=== PATIENT | male | born 1955 | race Caucasian/White ===

== ENCOUNTER 2021-03-13 19:04 | Emergency (ER) | payer BC, OTHER ==
[2021-03-13] MEDS ORDERED: Ondansetron 4 MG Tab.DIS PO ONE (19:26)
--- NOTE | 2021-03-13 19:32 | EDM.PDOC ---
ED [facility] GENERAL MEDICAL PROBLEM - General Chief Complaint: General Stated Complaint: GROIN PROBLEM Time Seen by Provider: 03/13/21 19:18 Source of Information: Reports: Patient History Limitations: Reports: No Limitations - History of Present Illness INITIAL COMMENTS - FREE TEXT/NARRATIVE: 65-year-old male presents the emergency department with complaints of superficial bleeding to his scrotum. Patient states that he scratched his scrotum and then noticed it felt wet and he states it started bleeding and he can get it to stop. Bleeding had stopped by the time the patient arrived to the emergency department. Denies any recent fever, chills, nausea, vomiting, diarrhea, cough or shortness of breath. Denies taking blood thinners. He denies any bleeding disorders. - Related Data Allergies Allergy/AdvReac Type Severity Reaction Status Date / Time No Known Allergies Allergy Verified 03/13/21 19:15 Past Medical History Cardiovascular History: Reports: High Cholesterol, Hypertension Social & Family History - Tobacco Use Tobacco Use Status *Q: Former Tobacco User Used Tobacco, but Quit: Yes Month/Year Tobacco Last Used: 09/2017 Second Hand Smoke Exposure: No - Caffeine Use Caffeine Use: Reports: Energy Drinks - Recreational Drug Use Recreational Drug Use: No ED ROS GENERAL - Review of Systems Review Of Systems: Comprehensive ROS is negative, except as noted in HPI. ED EXAM, GENERAL - Physical Exam Exam: See Below Exam Limited By: No Limitations General Appearance: Alert, WD/WN, No Apparent Distress Ears: Normal External Exam, Hearing Grossly Normal Nose: Normal Inspection Throat/Mouth: Normal Inspection, Normal Lips, Normal Voice, No Airway Compromise Head: Atraumatic Neck: Normal Inspection, Supple Respiratory/Chest: No Respiratory Distress, No Accessory Muscle Use Cardiovascular: Normal Peripheral Pulses, Regular Rate, Rhythm GI/Abdominal: No Distention (Male) Exam: Other (Various areas to scrotum that appear to be superficial capillaries. Patient states that there was one area that he scratched and bled a fair amount however bleeding was under control at the time of my assessment.). No: Scrotal Swelling, Scrotum Tenderness (L), Scrotum Tenderness (R), Testicular Tenderness (L), Testicular Tenderness (R) Rectal (Males) Exam: Deferred Back Exam: Normal Inspection Extremities: Normal Inspection Neurological: Alert, Oriented, Normal Cognition Psychiatric: Anxious Skin Exam: Warm, Dry, Intact, Normal Color, No Rash Lymphatic: No Adenopathy Course - Vital Signs Text/Narrative:: Upon assessment, patient's scrotum does appear to have various areas of very superficial capillaries. It appears that he might of scratched 1 and it began to bleed. At the time of my assessment there was no bleeding noted to his scrotum. Patient is concerned about what he should do should it start to bleed again. I have directed him to use a cold compress to the area to constrict the capillaries. He states that he is now feeling nauseated due to nervous from being in the emergency department. I have ordered for the patient received 4 mg Zofran ODT and then he will be discharged home with recommendations that he follow-up with his primary care provider. Last Recorded V/S: Last Vital Signs Temp 98.2 F 03/13/21 19:13 Pulse 111 H 03/13/21 19:13 Resp 18 03/13/21 19:13 BP 180/97 H 03/13/21 19:13 Pulse Ox 96 03/13/21 19:13 - Orders/Labs/Meds Orders: Active Orders 24 hr Category Date Time Status Ondansetron [Zofran ODT] Med 03/13/21 19:26 Once 4 mg PO ONETIME ONE Departure - Departure Time of Disposition: 19:31 Disposition: Home, Self-Care 01 Condition: Good Clinical Impression: Scrotal bleeding - Discharge Information Referrals: PCP,Not In Area [Primary Care Provider] - Additional Instructions: You were seen in the emergency department with complaints of bleeding noted to your scrotum. It appears that you have very superficial capillaries noted to your scrotum. When these are next they are more likely to bleed however if you apply a cold compress or ice pack to the area the bleeding should resolve. Sh ould you develop testicular swelling or pain noted to the testicle, recommend that you follow-up with your primary care provider or return to the emergency department. Should your condition worsen or change, do not hesitate returning to the emergency department. While you were in the emergency department you were given Zofran, nausea medication. This medication should work for the next 6 to 8 hours to treat your nausea. Sepsis Event Note (ED) - Evaluation Sepsis Screening Result: No Definite Risk - Focused Exam Vital Signs: Vital Signs Temp Pulse Resp BP Pulse Ox 03/13/21 19:13 98.2 F 111 H 18 180/97 H 96 - My Orders Last 24 Hours: My Active Orders 03/13/21 19:26 Ondansetron [Zofran ODT] 4 mg PO ONETIME ONE - Assessment/Plan Last 24 Hours: My Active Orders 03/13/21 19:26 Ondansetron [Zofran ODT] 4 mg PO ONETIME ONE
== END 2021-03-13 19:50 | disposition home or self-care (01) ==
LOC: JD.ED 19:04
DX: N50.1 Vascular disorders of male genital organs (principal); I10 Essential (primary) hypertension; Z87.891 Personal history of nicotine dependence
CPT/HCPCS: 99283; A9270

== ENCOUNTER 2021-09-18 16:08 | Emergency (ER) | payer BC ==
--- NOTE | 2021-09-18 17:57 | EDM.PDOC ---
ED HPI GENERAL MEDICAL PROBLEM - General Chief Complaint: Lower Extremity Injury/Pain Stated Complaint: BACK AND LEG PAIN Time Seen by Provider: 09/18/21 16:33 Source of Information: Reports: Patient, RN Notes Reviewed History Limitations: Reports: No Limitations - History of Present Illness INITIAL COMMENTS - FREE TEXT/NARRATIVE: Patient is a 66-year-old male presenting to the emergency department for evaluation of right hip pain. He reports Saturday of last week, he was shoveling outside when he felt a "twinge "in the area of his right hip. The next morning, he developed significant pain with walking. He does not have pain when at rest or with moving the leg, only when walking. He reports problems with his low back and sacrum. He saw chiropractor who adjusted his low back and recommended icing over the back as he feels hip pain may be originating in this area. Patient has been doing this with little relief. Denies any recent falls. He has no numbness or tingling in the extremity. Denies any bowel or bladder dysfunction. Right Anterior Thigh Pain Score (Numeric/FACES): 0 - Related Data Allergies Allergy/AdvReac Type Severity Reaction Status Date / Time No Known Allergies Allergy Verified 09/18/21 16:15 Home Meds: Home Meds Mirtazapine 30 mg PO DAILY 03/13/21 [History] atorvaSTATin [Lipitor] 20 mg PO DAILY 03/13/21 [History] lisinopriL [Lisinopril] 20 mg PO DAILY 03/13/21 [History] predniSONE [Prednisone] 20 mg PO ASDIRECTED #15 tablet 09/18/21 [Rx] Past Medical History HEENT History: Reports: Impaired Vision Other HEENT History: wears eyeglasses. Cardiovascular History: Reports: High Cholesterol, Hypertension Musculoskeletal History: Reports: Fracture Psychiatric History: Reports: Anxiety - Infectious Disease History Infectious Disease History: Reports: Chicken Pox, Measles, Mumps Social & Family History - Tobacco Use Tobacco Use Status *Q: Never Tobacco User Second Hand Smoke Exposure: No - Caffeine Use Caffeine Use: Reports: Energy Drinks, Soda - Recreational Drug Use Recreational Drug Use: No Review of Systems - Review of Systems Review Of Systems: Comprehensive ROS is negative, except as noted in HPI. ED EXAM, GENERAL - Physical Exam Exam: See Below Exam Limited By: No Limitations General Appearance: Alert, WD/WN, No Apparent Distress Respiratory/Chest: No Respiratory Distress, Lungs Clear, Normal Breath Sounds, No Accessory Muscle Use, Chest Non-Tender Cardiovascular: Normal Peripheral Pulses, Regular Rate, Rhythm, No Edema, No Gallop, No JVD, No Murmur, No Rub GI/Abdominal: Normal Bowel Sounds, Soft, Non-Tender, No Organomegaly, No Distention, No Abnormal Bruit, No Mass Back Exam: Normal Inspection, Full Range of Motion, Other (right SI tenderness) Extremities: Normal Inspection, Normal Range of Motion, No Pedal Edema, Normal Capillary Refill, Other (mild tenderness over the right greater trochanter.) Neurological: Alert, Oriented, Normal Cognition, Normal Gait, Normal Reflexes, No Motor/Sensory Deficits Psychiatric: Normal Affect, Normal Mood Skin Exam: Warm, Dry, Intact, Normal Color, No Rash Course - Vital Signs Last Recorded V/S: Last Vital Signs Temp 97.7 F 09/18/21 16:10 Pulse 96 09/18/21 16:10 Resp 18 09/18/21 16:10 BP 199/107 H 09/18/21 16:10 Pulse Ox 100 09/18/21 16:10 - Orders/Labs/Meds Orders: Active Orders 24 hr Category Date Time Status Hip Min 2V or 3V Rt [CR] Stat Exams 09/18/21 17:12 Taken Lumbar Spine 2 or 3V [CR] Stat Exams 09/18/21 17:12 Taken Sacrum Coccyx Min 2V [CR] Stat Exams 09/18/21 17:12 Taken - Re-Assessments/Exams Free Text/Narrative Re-Assessment/Exam: 09/18/21 18:46 X-rays show no acute abnormalities. I will prescribe tapering prednisone. Recommend patient to follow-up with his primary care provider at her next available visit. Discussed if symptoms improve, physical therapy and/or MRI would be recommended. He is in agreement with this plan. Discharge instructions as documented. Departure - Departure Time of Disposition: 18:46 Disposition: Home, Self-Care 01 Condition: Good Clinical Impression: Hip pain, right - Discharge Information *PRESCRIPTION DRUG MONITORING PROGRAM REVIEWED*: No *COPY OF PRESCRIPTION DRUG MONITORING REPORT IN PATIENT RACHELLE: No Prescriptions: predniSONE [Prednisone] 20 mg PO ASDIRECTED #15 tablet Instructions: Hip Pain Referrals: Analilia Vazquez NP [Primary Care Provider] - Forms: ED Department Discharge Additional Instructions: Use Tylenol and ibuprofen routinely for pain. Take prednisone as prescribed. Follow-up with your primary care provider at her next available visit to monitor symptoms and for ongoing management as needed. Return to ER as needed. Sepsis Event Note (ED) - Evaluation Sepsis Screening Result: No Definite Risk - Focused Exam Vital Signs: Vital Signs Temp Pulse Resp BP Pulse Ox 09/18/21 16:10 97.7 F 96 18 199/107 H 100 - My Orders Last 24 Hours: My Active Orders 09/18/21 17:12 Hip Min 2V or 3V Rt [CR] Stat Lumbar Spine 2 or 3V [CR] Stat Sacrum Coccyx Min 2V [CR] Stat - Assessment/Plan Last 24 Hours: My Active Orders 09/18/21 17:12 Hip Min 2V or 3V Rt [CR] Stat Lumbar Spine 2 or 3V [CR] Stat Sacrum Coccyx Min 2V [CR] Stat
--- NOTE | 2021-09-19 09:59 | CR ---
EXAM: XRAY L-SPINE,AP-LAT [facility] DATE/TIME: 09/18/2021 5:30 PM INDICATION: Pain, nki COMPARISON: None. TECHNIQUE: CR Lumbar Spine. IMPRESSION: 5 lumbar vertebrae. Mild lumbar dextrocurvature. Normal lumbar lordosis. No acute displaced fracture. Vertebral body heights are maintained. No aggressive osseous abnormality. 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 Mild lower lumbar facet arthropathy. No acute extraspinal abnormality. SIGNED BY: Hi Ruiz MD 09/18/2021 7:06 PM [place]
--- NOTE | 2021-09-19 10:00 | CR ---
EXAM: XR SACRUM AND COCCYX LOCATION: [facility] [employer] DATE/TIME: 09/18/2021 5:33 PM INDICATION: Sacrum and coccyx pain. No known injury. COMPARISON: None. IMPRESSION: No acute displaced sacral or coccygeal fracture identified. Sacral arcuate lines intact throughout. Mild bilateral sacroiliac joint osteoarthritis. Hip joint spaces are symmetric. No displaced pelvic fracture identified. Pelvic phleboliths. Degenerative change lower lumbar spine. SIGNED BY: Luis Alberto Nash MD 09/18/2021 7:36 PM [facility]
--- NOTE | 2021-09-19 10:02 | CR ---
EXAM: X-RAY HIP, UNI, 2+ VIEWS RIGHT LOCATION: [facility] [employer] DATE/TIME: 09/18/2021 5:36 PM INDICATION: Right hip pain. No known injury. COMPARISON: None. IMPRESSION: Anatomic alignment right hip. No acute displaced right hip fracture. Mild right hip osteoarthritis. No acute displaced pelvic fracture identified. Mild right sacroiliac joint osteoarthritis. SIGNED BY: Luis Alberto Nash MD 09/18/2021 7:36 PM [facility]
== END 2021-09-18 19:17 | disposition home or self-care (01) ==
LOC: JD.ED 16:08
DX: M25.551 Pain in right hip (principal); E78.00 Pure hypercholesterolemia, unspecified; I10 Essential (primary) hypertension; Z79.899 Other long term (current) drug therapy
CPT/HCPCS: 72100; 72100-26; 72220; 72220-26; 73502-26-RT; 73502-RT; 99283-25

== ENCOUNTER 2021-10-01 13:35 | Emergency (ER) | payer BC ==
[2021-10-01] MEDS: Acetaminophen/HYDROcodone 325-5 MG Tab PO ONE (16:23)
[2021-10-01 16:32] LABS: CORONAVIRUS COVID-19 NAA NEGATIVE (NEGATIVE)
== END 2021-10-01 17:20 | disposition home or self-care (01) ==
LOC: JD.ED 13:35
DX: R06.02 Shortness of breath (principal); E78.00 Pure hypercholesterolemia, unspecified; I10 Essential (primary) hypertension; Z79.899 Other long term (current) drug therapy; Z20.822 Contact with and (suspected) exposure to COVID-19
CPT/HCPCS: 0240U; 36415; 71046; 71046-26; 80053; 83880; 84484; 85025; 85379; 93005; 99285-25; A9270-GY

== ENCOUNTER 2022-11-19 11:17 | Emergency (ER) | payer MEDICARE, BC | END 2022-11-19 16:10 | disposition home or self-care (01) | LOC: JD.ED 11:17 | DX: S92.015A Nondisplaced fracture of body of left calcaneus, initial encounter for closed fracture (principal); E78.00 Pure hypercholesterolemia, unspecified; I10 Essential (primary) hypertension; Z79.899 Other long term (current) drug therapy; W11.XXXA Fall on and from ladder, initial encounter | CPT/HCPCS: 73610-26-LT; 73610-LT; 73630-26-LT; 73630-LT; 73700-26-LT; 73700-LT; 99283 ==